=== PATIENT | female | born 1990 | race Caucasian/White ===

== ENCOUNTER → 2021-04-17 | Outpatient (CLI) | payer BC, OTHER ==
[~2021-04-17] MED LIST: BENA25CA4 PO; COLA100C5 PO; FERR325T3 PO; IBUP80TA PO; OXYC1TAB23 PO
== END ==
LOC: M WHC 08:29
PROVIDERS: ATTEND Advanced Practice Midwife
DX: Z34.82 Encounter for supervision of other normal pregnancy, second trimester (principal)

== ENCOUNTER → 2021-04-19 | Outpatient (CLI) | payer BC, OTHER ==
[2021-04-19 13:56] LABS: HEMATOCRIT 33.6 % (36.0-47.0); HEMOGLOBIN 10.6 g/dl (12.0-15.5); MEAN CORPUSCULAR HEMOGLOBIN 28.3 pg (27.0-33.0); MEAN CORPUSCULAR HGB CONC 31.5 g/dl (32.0-36.5); MEAN CORPUSCULAR VOLUME 89.8 fl (80.0-96.0); PLATELET COUNT, AUTOMATED 246 10^3/uL (150-450); RED BLOOD COUNT 3.74 10^6/uL (4.00-5.40); WHITE BLOOD COUNT 9.1 10^3/uL (4.0-10.0)
== END ==
LOC: M PLALAB 09:06
PROVIDERS: ATTEND Advanced Practice Midwife
DX: Z34.82 Encounter for supervision of other normal pregnancy, second trimester (principal)

== ENCOUNTER 2021-07-27 06:41 | Inpatient (IN) | payer OTHER ==
[2021-07-27] VITALS (37 sets, daily range): BP systolic 90–124; BP diastolic 48–90
[~2021-07-27] VITALS: Ht 160 cm; Wt 74.2 kg
[2021-07-27] MEDS ORDERED: BENA25CA4 PO (07:13)
--- OUTSIDE RECORDS SUMMARY | 2021-07-27 08:04 | CCD ---
Author Author [facility] Organization [facility] Address Unknown Phone Unavailable Care Team Providers Care Executive Wellness Programs Director Name Role Phone Harveyoskar Annamarie Unavailable PROBLEMS Type Condition ICD9-CM Code [id number] Code Onset Dates Condition S tatus W/U Status Risk SNOMED Code Notes Problem Supervision of other normal Z34.80 Ac tive confirm [id number] ALLERGIES Allergen (clinical drug ingredient) Drug/Non Drug Allergy do cumented on EMR Reaction Allergy Type Onset Date Status seasonal Unknown Non Drug Allergy Active ENCOUNTERS from 1991 to 2021-07-19 Encounter Location Date Provider Diagnosis [facility] [address] [place] [address] [place] [address] Jul, Annamarie Maxwell Encounter for sup ervision of normal in multigravida in third trimester Z34.83 and 38 weeks gestation of Z3A.38 IMMUNIZATIONS Vaccine Route Administration Date Status TDAP 0.5mL Boostrix IM Intramuscular Jun 06, 2021 Administere d SOCIAL HISTORY Tobacco Use: Social History Observation Description Date Details (start date - stop date) Never Smoker Sex Assigned At : Social History Observation Description Sex Assigned At Unknown Domestic Violence: Question Answer Notes Status: No history of abuse Alcohol Screening: Question Answer Notes Did you have a drink containing alcohol in the past year? No Points 0 Interpretation Negative Tobacco Use: Question Answer Notes Are you a: never smoker REASON FOR REFERRAL No Information VITAL SIGNS Weight 161 lbs Jul, Weight-kg 73.03 kg Jul, Height 63 in 12 Oct, 2021 BMI 28.52 kg/m2 Jul, Blood pressure systolic 106 mm Hg Jul, Blood pressure diastolic 68 mm Hg Jul, MEDICATIONS Medication SIG (Take, Route, Frequency, Duration) Notes Start Da te End Date Status 28-0.8 MG 1 tablet Orally Once a day Active PROCEDURES No Information RESULTS No Results REASON FOR VISIT 1 WK PN MEDICAL (GENERAL) HISTORY Type Description Date Hospitalization History childbirth Goals Section No Information Health Concerns No Information MEDICAL EQUIPMENT No Information MENTAL STATUS No Information FUNCTIONAL STATUS No Information ASSESSMENTS Encounter Date Diagnosis Assessment Notes Treatment Notes Treatm ent Clinical Notes Jul, 38 weeks gestation of (ICD-10 - Z3A.38 ) Jul, Encounter for supervision of normal in multigravida in third trimester (ICD-10 - Z34.83) PLAN OF TREATMENT Next Appt Details 1 Week Reason:- Routine follow up Provider Name:Vidya Banuelos, 2021-07-07 9 10:00:00 AM, [address] [place] [address] , [place], [address], Provider Name:Deonte New, 2021-07-31 10:45:00 AM, [address] [place] [address], , [place], [address], Follow Up:1 Week- Routine follow up Insurance Providers Payer Name Payer Address Payer Phone Insured Name Patient Relati onship to Insured Coverage Start Date Coverage End Date BCBS OF [facility] [phone] [facility] [address] CHEREL[place] PART[place] [facility] HEALTH INSURANCE [id number] [facility] [id number] RONY PARTIDA
--- OUTSIDE RECORDS SUMMARY | 2021-07-27 08:04 | CCD ---
Author Author [facility] Organization [facility] Address Unknown Phone Unavailable Care Team Providers Care Aircraft Cabin Cleaner Name Role Phone Deonte New Unavailable PROBLEMS Type Condition ICD9-CM Code [id number] Code Onset Dates Condition S tatus W/U Status Risk SNOMED Code Notes Problem Supervision of other normal Z34.80 Ac tive confirm [id number] ALLERGIES Allergen (clinical drug ingredient) Drug/Non Drug Allergy do cumented on EMR Reaction Allergy Type Onset Date Status seasonal Unknown Non Drug Allergy Active ENCOUNTERS from 1991 to 2021-07-16 Encounter Location Date Provider Diagnosis [facility] [address] [place] [address] [place] [address] Jul, Deonte New Encounter for superv ision of other normal in third trimester Z34.83 and 37 weeks gestation of Z3A.37 IMMUNIZATIONS Vaccine Route Administration Date Status TDAP [...] FOR REFERRAL No Information VITAL SIGNS Weight 160 lbs Jul, Height 63 in Jul, BMI 28.343 kg/m2 Jul, Blood pressure systolic 108 mm Hg Jul, Blood pressure diastolic 64 mm Hg Jul, MEDICATIONS Medication SIG (Take, [...] Treatment Notes Treatm ent Clinical Notes Jul, Encounter for supervision of other normal in third trimester (ICD-10 - Z34.83) Jul, 37 weeks gestation of (ICD-10 - Z3A.37 ) PLAN OF TREATMENT Next Appt Details Provider Name:Annamarie Maxwell, 2021-07-18 10:00:00 AM, [address] [place] [address] , [place], [address], Provider Name:Vidya Banuelos, 2021-07-07 9 10:00:00 AM, [address] [place] [address] , [place], [address], Provider Name:Deonte New, 2021-07-31 10:45:00 AM, [address] [place], [place] [id number], [place], [address], Insurance Providers Payer Name Payer Address Payer Phone Insured Name Patient Relati onship to Insured Coverage Start Date Coverage End Date BCBS OF [facility] [phone] [facility] [address] CHERELLE PARTIDA [facility] [employer] INSURANCE [id number] [place] [address] RONY PARTIDA
--- OUTSIDE RECORDS SUMMARY | 2021-07-27 08:04 | CCD ---
Author Author [facility] Organization [facility] Address Unknown Phone Unavailable Care Team Providers Care Brass Chaser Name Role Phone Harveyoskar Annamarie Unavailable PROBLEMS Type Condition ICD9-CM Code [id number] Code Onset Dates Condition S tatus W/U Status Risk SNOMED Code Notes Problem Supervision of other normal Z34.80 Ac tive confirm [id number] ALLERGIES Allergen (clinical drug ingredient) Drug/Non Drug Allergy do cumented on EMR Reaction Allergy Type Onset Date Status seasonal Unknown Non Drug Allergy Active ENCOUNTERS from 1991 to 2021-06-07 Encounter Location Date Provider Diagnosis [facility] [address] [place] [address] [place] [address] May, Annamarie Maxwell Encounter for sup ervision of normal in multigravida in third trimester Z34.83 ; 32 weeks gestation of Z3A.32 and Encounter for immunization Z23 IMMUNIZATIONS Vaccine Route Administration Date Status TDAP 0.5mL Boostrix IM Intramuscular Jun 06, 2021 Administere d SOCIAL HISTORY Tobacco Use: Social History Observation Description Date Details (start date - stop date) Never Smoker Sex Assigned At : Social History Observation Description Sex Assigned At Unknown Domestic Violence: Question Answer Notes Status: No history of abuse Tobacco Use: Question Answer Notes Are you a: never smoker REASON FOR REFERRAL No Information VITAL SIGNS Weight 151.8 lbs May, Weight-kg 68.86 kg May, Height 63 in May, BMI 26.89 kg/m2 May, Blood pressure systolic 112 mm Hg May, Blood pressure diastolic 68 mm Hg May, MEDICATIONS Medication SIG (Take, Route, Frequency, Duration) Notes Start Da te End Date Status 28-0.8 MG 1 tablet Orally Once a day Active PROCEDURES from 1991 to 2021-06-07 Procedure Date Ordered Result Body Site Imm: Boostrix 0.5mL IM TDAP 2021-06-06 N/A RESULTS No Results REASON FOR VISIT 2WK PN MEDICAL (GENERAL) HISTORY Type Description Date Hospitalization History childbirth Goals Section No Information Health Concerns No Information MEDICAL EQUIPMENT No Information MENTAL STATUS No Information FUNCTIONAL STATUS No Information ASSESSMENTS Encounter Date Diagnosis Assessment Notes Treatment Notes Treatm ent Clinical Notes May, Encounter for supervision of normal in multigravida in third trimester (ICD-10 - Z34.83) May, 32 weeks gestation of (ICD-10 - Z3A.32 ) May, Encounter for immunization (ICD-10 - Z23) PLAN OF TREATMENT Next Appt Details 2 Weeks Reason:- Routine follow up Provider Name:Candida Ogden, 2021-06-26 0 9:00:00 AM, [address] [facility], , [place], [address], Follow Up:2 Weeks- Routine follow up Insurance Providers Payer Name Payer Address Payer Phone Insured Name Patient Relati onship to Insured Coverage Start Date Coverage End Date BCBS OF [facility] [phone] [facility] [id number] [place] PART[place] [facility] [employer] INSURANCE [id number] [place] [address] RONY PARTIDA
--- OUTSIDE RECORDS SUMMARY | 2021-07-27 08:04 | CCD ---
Author Author [facility] Organization [facility] Address Unknown Phone Unavailable Care Team Providers Care Furniture Crater Name Role Phone DesiraeChriss mendietalette Unavailable PROBLEMS Type Condition ICD9-CM Code [id number] Code Onset Dates Condition S tatus W/U Status Risk SNOMED Code Notes Problem Supervision of other normal Z34.80 Ac tive confirm [id number] ALLERGIES Allergen (clinical drug ingredient) Drug/Non Drug Allergy do cumented on EMR Reaction Allergy Type Onset Date Status seasonal Unknown Non Drug Allergy Active ENCOUNTERS from 1991 to 2021-05-18 Encounter Location Date Provider Diagnosis [facility] [address] [place] [address] [place] [address] May, Annamarie Gabrieloskar Encounter for sup ervision of normal in multigravida in third trimester Z34.83 and 29 weeks gestation of Z3A.29 IMMUNIZATIONS No Information SOCIAL HISTORY Tobacco Use: Social History Observation Description Date Details (start date - stop date) Never Smoker Sex Assigned At : Social History Observation Description Sex Assigned At Unknown Domestic Violence: Question Answer Notes Status: No history of abuse Tobacco Use: Question Answer Notes Are you a: never smoker REASON FOR REFERRAL No Information VITAL SIGNS Weight 151.2 lbs May, Weight-kg 68.58 kg May, Height 63 in May, BMI 26.784 kg/m2 May, Blood pressure systolic 108 mm Hg May, Blood pressure diastolic 64 mm Hg May, MEDICATIONS Medication SIG (Take, Route, Frequency, Duration) Notes Start Da te End Date Status 28-0.8 MG 1 tablet Orally Once a day Active PROCEDURES No Information RESULTS No Results REASON FOR VISIT 4 WK PN MEDICAL (GENERAL) HISTORY Type Description Date Hospitalization History childbirth Goals Section No Information Health Concerns No Information MEDICAL EQUIPMENT No Information MENTAL STATUS No Information FUNCTIONAL STATUS No Information ASSESSMENTS Encounter Date Diagnosis Assessment Notes Treatment Notes Treatm ent Clinical Notes May, Encounter for supervision of normal in multigravida in third trimester (ICD-10 - Z34.83) May, 29 weeks gestation of (ICD-10 - Z3A.29 ) PLAN OF TREATMENT Next Appt Details 2 Weeks Reason:- Routine follow up Provider Name:Annamarieazael Cruzlauren, 2021-06-06 09:00:00 AM, [address] [facility], , [place], [address], Follow Up:2 Weeks- Routine follow up Insurance Providers Payer Name Payer Address Payer Phone Insured Name Patient Relati onship to Insured Coverage Start Date Coverage End Date [facility] WPS HEALTH INSURANCE [address] [facility] [address] R[place] PART[place] BCBS [facility] [phone] [facility] [address] CHERELLE PARTIDA self
--- OUTSIDE RECORDS SUMMARY | 2021-07-27 08:04 | CCD ---
Author Author [facility] Organization [facility] Address Unknown Phone Unavailable Care Team Providers Care Clinical Data Assistant Name Role Phone Melyssa Galeana Unavailable PROBLEMS Type Condition ICD9-CM Code [id number] Code Onset Dates Condition S tatus W/U Status Risk SNOMED Code Notes Problem Supervision of other normal Z34.80 Ac tive confirm [id number] ALLERGIES Allergen (clinical drug ingredient) Drug/Non Drug Allergy do cumented on EMR Reaction Allergy Type Onset Date Status seasonal Unknown Non Drug Allergy Active ENCOUNTERS from 1991 to 2021-07-19 Encounter Location Date Provider Diagnosis [facility] [address] [place] [address] [place] [address] Jun, Melyssa Galeana Encounter for superv ision of normal in multigravida in third trimester Z34.83 and 36 weeks gestation of Z3A.36 IMMUNIZATIONS Vaccine Route Administration Date Status TDAP [...] FOR REFERRAL No Information VITAL SIGNS Weight 157 lbs Jun, Weight-kg 71.21 kg Jun, Height 63 in Jun, BMI 27.811 kg/m2 Jun, Blood pressure systolic 102 mm Hg Jun, Blood pressure diastolic 68 mm Hg Jun, MEDICATIONS Medication SIG (Take, Route, Frequency, Duration) Notes Start Da te End Date Status 28-0.8 MG 1 tablet Orally Once a day Active PROCEDURES No Information RESULTS Component Value Reference Range GROUP B STREP CULTURE Reviewed date:07/10/2021 08:06:17 Interpretation: Performing Lab:[facility], [facility] [address] [facility] [address] , ,[place] [address] REASON FOR VISIT 2 WK PN MEDICAL (GENERAL) HISTORY Type Description Date Hospitalization History childbirth Goals Section No Information Health Concerns No Information MEDICAL EQUIPMENT No Information MENTAL STATUS No Information FUNCTIONAL STATUS No Information ASSESSMENTS Encounter Date Diagnosis Assessment Notes Treatment Notes Treatm ent Clinical Notes Jun, 36 weeks gestation of (ICD-10 - Z3A.36 ) Jun, Encounter for supervision of normal in multigravida in third trimester (ICD-10 - Z34.83) PLAN OF TREATMENT Next Appt Details 1 Week Reason:PN Provider Name:Vidya Banuelos, 2021-07-07 9 10:00:00 AM, [address] [place] [address], , [place], [address], Provider Name:Deonte New, 2021-07-31 10:45:00 AM, [address] [place] [address], , [place], [address], Follow Up:1 WeekPN Insurance Providers Payer Name Payer Address Payer Phone Insured Name Patient Relati onship to Insured Coverage Start Date Coverage End Date BCBS OF [place] [phone] [place] [employer] [facility] [address] CHERELLE PARTIDA [facility] HE[facility] INSURANCE [address] [place] [address] RONY PARTIDA
--- OUTSIDE RECORDS SUMMARY | 2021-07-27 08:04 | CCD ---
Author Author [facility] Organization [facility] Address Unknown Phone Unavailable Support Name Relationship Address Phone [employer] Next Of Kin [address] [place], [place] [id number] GABRIELA ANDRES Next Of Kin [address] [place] [address] RONY PARTIDA Next Of Kin [address] [place] [address] RONY PARTIDA [facility] [address] [place] [address] Unavailable Re-disclosure Warning The records that you are about to access may contain information from federally-assisted alcohol or drug abuse programs. If such information is present, then the following federally mandated warning applies: This information has been disclosed to you from records protected by federal confidentiality rules (42 CFR part 2). The federal rules prohibit you from making any further disclosure of this information unless further disclosure is expressly permitted by the written consent of the person to whom it pertains or as otherwise permitted by 42 CFR part 2. A general authorization for the release of medical or other information is NOT sufficient for this purpose. The Federal rules restrict any use of the information to criminally investigate or prosecute any alcohol or drug abuse patient.The records that you are about to access may contain highly sensitive health information, the redisclosure of which is protected by Article 27-F of the [place] State Public Health law. If you continue you may have access to information: Regarding HIV / AIDS; Provided by facilities licensed or operated by the [facility] Office of Mental Health; or Provided by the [facility] Office for People With Developmental Disabilities. If such information is present, then the following [facility] mandated warning applies: This information has been disclosed to you from confidential records which are protected by state law. State law prohibits you from making any further disclosure of this information without the specific written consent of the person to whom it pertains, or as otherwise permitted by law. Any unauthorized further disclosure in violation of state law may result in a fine or assisted sentence or both. A general authorization for the release of medical or other information is NOT sufficient authorization for further disc losure. Encounters Encounter Providers Location Date Indications Data Source(s ) ( ESTOB) [facility] [address] [place] [address] 07/18/2021 12:00:00 AM EDT eCW1 ([facility]) ( ESTOB) [facility] [address] [place] [address] 07/12/2021 12:00:00 AM EDT eCW1 ([facility]) ( ESTOB) [facility] [address] [place] [address] 07/06/2021 12:00:00 AM EDT eCW1 ([facility]) ( ESTOB) [facility] [address] [place] [address] 06/06/2021 12:00:00 AM EDT eCW1 ([facility]) ( ESTOB) [facility] [address] [place] [address] 05/17/2021 12:00:00 AM EDT [facility] ( [facility] [address] [place] [address] 04/19/2021 12:00:00 AM EDT eCW1 ([facility]) ( NEWOB) [facility] OB Visit [address] [place] [address] 03/22/2021 12:00:00 AM EDT eCW1 ([facility]) Immunizations Vaccine Date Status Description Data Source(s) Tdap 06/06/2021 10:15:00 AM EDT completed e CW1 ([facility]) Tdap 06/06/2021 10:15:00 AM EDT completed e CW1 ([facility]) Tdap 06/06/2021 10:15:00 AM EDT completed e CW1 ([facility]) Tdap 06/06/2021 10:15:00 AM EDT completed e CW1 ([facility]) Medications No Information Insurance Providers Payer name Policy type / Coverage type Policy ID Covered democrat ID Covered democrat's relationship to cano Policy [place] Plan Information [facility] [id number] BC[place] OF [place] [id number]/[phone] [id number] SP [id number] BCBS [place] PPO 302/307 [id number] SP [id number] Problems, Conditions, and Diagnoses Code Display Name Description Problem Type Effective Dates Data Source(s) Z34.80 care Supervision of other normal P lash[place] 03/09/2021 12:00:00 AM EDT eCW1 ([facility]) Surgeries/Procedures Procedure Description Date Indications Data Source(s) TDAP VACCINE 7/> YR IM 06/06/2021 12:00:00 AM EDT eCW1 ([facility]) Results ID Date Data Source GROUP B STREP CULTURE 07/06/2021 12:00:00 AM EDT eCW1 ([facility] includes the [facility]) Name Value Range Interpretation Code Description Data Princess rce(s) Supporting Document(s) GROUP B STREP CULTURE eCW1 ([facility]) Procedure Social History Code Duration Value Status Description Data Source(s ) Smoking 07/18/2021 12:00:00 AM EDT Never Smoker completed Never S moker eCW1 ([facility]) Smoking 07/18/2021 12:00:00 AM EDT Never Smoker completed Never S moker eCW1 ([facility]) Smoking 07/12/2021 12:00:00 AM EDT Never Smoker completed Never S moker eCW1 ([facility]) Smoking 06/06/2021 12:00:00 AM EDT Never Smoker completed Never S moker eCW1 ([facility]) Smoking 05/17/2021 12:00:00 AM EDT Never Smoker completed Never S moker eCW1 ([facility]) Smoking 04/17/2021 12:00:00 AM EDT Never Smoker completed Never S moker eCW1 ([facility]) Smoking 03/22/2021 12:00:00 AM EDT Never Smoker completed Never S moker eCW1 ([facility]) Vital Signs ID Date Data Source UNK Name Value Range Interpretation Code Description Data Source(s) Body weight 161 [lb_av] 161 [lb_av] eCW1 (Count includes the [facility]) Body weight 73.03 kg 73.03 kg eCW1 ([facility]) Body height 63 [in_i] 63 [in_i] eCW1 ([facility]) Body mass index (BMI) [Ratio] 28.52 kg/m2 28.52 kg/m2 eCW1 ([facility]) Systolic blood pressure 106 mm[Hg] 106 mm[Hg] e CW1 ([facility]) Diastolic blood pressure 68 mm[Hg] 68 mm[Hg] eCW1 ([facility]) Body weight 160 [lb_av] 160 [lb_av] eCW1 (Count includes the [facility]) Body height 63 [in_i] 63 [in_i] eCW1 ([facility]) Body mass index (BMI) [Ratio] 28.343 kg/m2 28.3 43 kg/m2 eCW1 ([facility]) Systolic blood pressure 108 mm[Hg] 108 mm[Hg] e CW1 ([facility]) Diastolic blood pressure 64 mm[Hg] 64 mm[Hg] eCW1 ([facility]) Body weight 157 [lb_av] 157 [lb_av] eCW1 (Count includes the [facility]) Body weight 71.21 kg 71.21 kg eCW1 ([facility]) Body height 63 [in_i] 63 [in_i] eCW1 ([facility]) Body mass index (BMI) [Ratio] 27.811 kg/m2 27.8 11 kg/m2 eCW1 ([facility]) Systolic blood pressure 102 mm[Hg] 102 mm[Hg] e CW1 ([facility]) Diastolic blood pressure 68 mm[Hg] 68 mm[Hg] eCW1 ([facility]) Body weight 151.8 [lb_av] 151.8 [lb_av] eCW1 ([facility]) Body weight 68.86 kg 68.86 kg eCW1 ([facility]) Body height 63 [in_i] 63 [in_i] eCW1 ([facility]) Body mass index (BMI) [Ratio] 26.89 kg/m2 26.89 kg/m2 eCW1 ([facility]) Systolic blood pressure 112 mm[Hg] 112 mm[Hg] e CW1 ([facility]) Diastolic blood pressure 68 mm[Hg] 68 mm[Hg] eCW1 ([facility]) Body weight 151.2 [lb_av] 151.2 [lb_av] eCW1 ([facility]) Body weight 68.58 kg 68.58 kg eCW1 ([facility]) Body height 63 [in_i] 63 [in_i] eCW1 ([facility]) Body mass index (BMI) [Ratio] 26.784 kg/m2 26.7 84 kg/m2 eCW1 ([facility]) Systolic blood pressure 108 mm[Hg] 108 mm[Hg] e CW1 ([facility]) Diastolic blood pressure 64 mm[Hg] 64 mm[Hg] eCW1 ([facility]) Body weight 147 [lb_av] 147 [lb_av] eCW1 (Count includes the [facility]) Body weight 66.68 kg 66.68 kg eCW1 ([facility]) Body height 63 [in_i] 63 [in_i] eCW1 ([facility]) Body mass index (BMI) [Ratio] 26.04 kg/m2 26.04 kg/m2 eCW1 ([facility]) Systolic blood pressure 112 mm[Hg] 112 mm[Hg] e CW1 ([facility]) Diastolic blood pressure 66 mm[Hg] 66 mm[Hg] eCW1 ([facility]) Body weight 143.4 [lb_av] 143.4 [lb_av] eCW1 ([facility]) Body height 63 [in_i] 63 [in_i] eCW1 ([facility]) Body mass index (BMI) [Ratio] 25.402 kg/m2 25.4 02 kg/m2 [facility] ([facility]) Systolic blood pressure 102 mm[Hg] 102 mm[Hg] e CW1 ([facility]) Diastolic blood pressure 76 mm[Hg] 76 mm[Hg] eCW1 ([facility])
--- NOTE | 2021-07-27 09:04 | HPEPDOC ---
Obstetrical History & Physical General Date of Admission Jul 27, 2021 at 08:00 History of Present Illness 30 y/o at 39+1 weeks gestation by LNP consistent with 10 week ultrasoun d (EDC=07/31/21) presents with regular contractions every 4-5 minutes throughout the night. No vaginal bleeding, no leakage of fluid, good movement. Age: 30 : 2 Term: 1 Pre-term: 0 Abortions: 0 Livin Care Care: Good Care Dating Final EDC: Jul 31, 2021 Final EDC by: LMP, 1st trimester (US) Past Medical History Past Medical History Medical History Ob history: - 2012 38 week vaginal delivery 6lb and 1 ounce male. Medical History: - None Surgical history: - None Social History Marital Status: Family situation: Spouse/partner home Psychosocial History: No pertinent psych hx * Smoker: non-smoker Alcohol: Denies Drugs: denies Medications Scheduled Diphenhydramine HCl (Benadryl) 25 Mg Capsule, 25 MG PO QPM Physical Examination Physical Examination GENERAL: Alert and oriented times three. BREAST: . ABDOMEN: Gravid and non-tender to touch. FETUS: Is vertex (VTX) by sterile vaginal examination (SVE), fetus is vertex (VTX) by Cornelio. HEART RATE: Regular rate and rhythm. LUNGS: Clear to auscultation (CTA). EXTREMITIES: No edema. No clonus. Deep tendon reflexes (DTRs) + . Vital Signs/I&O Vital Signs Date Time Temp Pulse Resp B/P (MAP) Pulse Ox O2 Delivery O2 Flow Rate FiO2 07/27/21 06:59 97.4 73 124/70 (88) Pertinent Laboratoy Data Blood Type: O+ Group B Streptococcus: Negative Vaginal Examination Dilation: 4 cm Effacement: 80% Station: -2 Cervical Consistency: Soft Cervical Position: Posterior Presentation: Cephalic presentation Assessment Variability: Moderate Accelerations: Positive Decelerations: None Tocometer Contractions: Yes Frequency: regular Assessment/Plan Assessment Pt is a 30-year-old (G)2 para (P)1-0-0-1 at 39+1 weeks by LNP consistent with 10-week ultrasound, Presents to Labor and Delivery (L&D) in active labor. Plan Admit and orient. 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 Diet: clear liquid. Group B Streptococcus (GBS) negative. Labs and intravenous (IV) per unit protocol. Anticipate normal spontaneous delivery (). C-S as appropriate. ELKE HUITRON OMS-3 Jul 27, 2021 09:04
[2021-07-27 09:14] LABS: HEMATOCRIT 32.5 % (36.0-47.0); HEMOGLOBIN 10.1 g/dl (12.0-15.5); MEAN CORPUSCULAR HEMOGLOBIN 24.9 pg (27.0-33.0); MEAN CORPUSCULAR HGB CONC 31.1 g/dl (32.0-36.5); PLATELET COUNT, AUTOMATED 206 10^3/uL (150-450); RED BLOOD COUNT 4.06 10^6/uL (4.00-5.40); WHITE BLOOD COUNT 9.6 10^3/uL (4.0-10.0)
[2021-07-27] MEDS ORDERED: OXYTOCIN DRIP 30 UNITS in IV 1 EA IV SCH (12:45)
[2021-07-27] MEDS: LR 1,000 ML IV SCH ×2 (17:16→21:26)
[2021-07-27] MEDS ORDERED: FENTANYL 2MCG/ML ROPIVACAINE 0.2% IN 0.9% NACL 100ML IVBAG As Ordered ONE (19:50)
[2021-07-27] MEDS ORDERED: FENTANYL/ROPIVACAINE/NACL BAG 100 ML EPIDURAL SCH ×2 (20:20→21:00)
[2021-07-27] MEDS ORDERED: EPIDURAL COMMENT XX SCH (21:00)
[2021-07-27] MEDS ORDERED: EPIDURAL/PCA KEYS XX PRN (21:00)
[2021-07-27] MEDS ORDERED: ONDANSETRON 4MG/2ML VIAL IV PRN (21:00)
[2021-07-27] MEDS ORDERED: diphenhydrAMINE 50MG/ML VIAL (J1200) IV PRN (21:00)
[2021-07-27] MEDS ORDERED: NALOXONE INJ 0.4MG/1ML VIAL (J2310 PER 1MG) IV PRN (21:00)
[2021-07-27] MEDS ORDERED: REFRIGERATOR IV KEYS XX PRN (21:00)
[2021-07-27] MEDS ORDERED: LACTATED RINGER'S 1000 ML IV PRN (21:00)
[2021-07-27] MEDS: ePHEDrine SULFATE 25 MG/5 ML(5MG/ML) SYRINGE IV PRN ×3 (21:03→21:16)
[2021-07-28] VITALS (15 sets, daily range): BP systolic 99–144; BP diastolic 53–66
[2021-07-28] MEDS ORDERED: ceFAZolin SOD 2 GM in IV 1 EA IV ONE (03:50)
[2021-07-28] MEDS ORDERED: BICITRA 30ML SOLN UDC PO ONE (03:50)
[2021-07-28] MEDS ORDERED: AZITHROMYCIN INJ 500 MG, VIAL MATE ADAPTER 1 EACH in NS 250 ML IV ONE (03:50)
[2021-07-28] MEDS ORDERED: diphenhydrAMINE 50MG/ML VIAL (J1200) IV PRN (04:37)
[2021-07-28] MEDS ORDERED: NALBUPHINE HCL 10 MG/ML AMP (J2300) IV PRN ×2 (04:37→06:10)
[2021-07-28] MEDS ORDERED: METOCLOPRAMIDE INJ 10MG/2ML VIAL (J2765 PER 1) IV PRN (04:37)
[2021-07-28] MEDS ORDERED: ONDANSETRON 4MG/2ML VIAL IV PRN ×3 (04:37→06:10)
[2021-07-28] MEDS ORDERED: NALOXONE INJ 0.4MG/1ML VIAL (J2310 PER 1MG) IV PRN ×2 (04:37)
[2021-07-28] MEDS ORDERED: ONDANSETRON 4MG/2ML VIAL As Ordered ONE (04:41)
[2021-07-28] MEDS ORDERED: ACETAMINOPHEN 1000MG 100ML IV BTL (OFIRMEV) (J0131 PER 10MG) As Ordered ONE (04:41)
[2021-07-28] MEDS ORDERED: LIDOCAINE 2% W/EPINEPHRINE 20ML VIAL **PRES FREE As Ordered ONE (04:41)
[2021-07-28] MEDS ORDERED: MORPHINE PRES-FREE INJ 10 MG/10 ML VIAL (J2274) As Ordered ONE (04:41)
[2021-07-28] MEDS ORDERED: KETOROLAC 60MG 2ML VIAL As Ordered ONE (04:41)
[2021-07-28] MEDS ORDERED: OXYTOCIN 30 UNITS IN 0.9% NaCl 500ML IV BAG (J2590) As Ordered ONE ×2 (04:41→05:35)
[2021-07-28] MEDS ORDERED: SODIUM BICARBONATE 8.4% INJ 50MEQ 50 ML VIAL As Ordered ONE (04:41)
[2021-07-28] MEDS ORDERED: PHENYLephrine 500MCG 5ML (100MCG/ML) SYRINGE As Ordered ONE (04:41)
[2021-07-28] MEDS ORDERED: dexameTHASONE 4 MG/ML 1ML VIAL (J1100 PER 1MG) As Ordered ONE (04:41)
[2021-07-28] MEDS ORDERED: RHOGAM 300 MCG (1500 IU) INJ (J2790) IM SCH (05:15)
[2021-07-28] MEDS ORDERED: MEASLES,MUMPS,RUBELLA VACCINE INJ (MMR-II) (90707) SC SCH (05:15)
[2021-07-28] MEDS ORDERED: LR 1,000 ML IV SCH (05:15)
[2021-07-28] MEDS ORDERED: DOCUSATE SODIUM 100MG CAPSULE PO PRN (05:15)
[2021-07-28] MEDS ORDERED: SIMETHICONE 80MG CHEW TAB PO PRN (05:15)
[2021-07-28] MEDS ORDERED: PERCOCET 5MG/325MG TAB PO PRN ×2 (05:15)
[2021-07-28] MEDS ORDERED: OXYTOCIN DRIP 30 UNITS in IV 1 EA IV SCH (05:15)
--- NOTE | 2021-07-28 05:20 | ROOPDOC ---
[facility] Report Of Operation Report of Operation DATE OF PROCEDURE: 07/28/21 Report of operation Preoperative diagnosis: 39 weeks, arrest of descent Postoperative diagnosis: same Procedure: Primary low transverse section Surgeon: Berhane Wakefield M.D. Asst.: Zoie Jonas MD EBL: 600 ml. Urine output: 100 mL's. Findings: 6 lbs.15 oz. male infant, 's 9 and 9, occiput posterior, extended head, normal uterus, fallopian tubes, ovaries. Operative summary: Patient taken to the operating room where spinal was anesthesia induced. She was prepped and draped in a sterile fashion in the supine position. A Dobbins catheter was placed. A Pfannenstiel skin incision was made with scalpel. Fascia was incised and extended bilaterally. The fascia was dissected off the rectus muscles. The peritoneal cavity was entered. A Mobius retractor was placed. A bladder flap was created. A curvilinear incision was made in lower uterine segment until Clear fluid was noted. The incision was extended manually. The was delivered from the vertex position without difficulty. Cord was doubly clamped and cut. The was handed waiting nurses. The placenta was expressed. Uterus was closed with O-Vicryl in a running locked fashion. A second imbricating layer of Vicryl was placed. Peritoneum was closed with 2-0 Vicryl a running fashion. Fascia was closed with 0 Vicryl in running fashion. Skin was closed 4-0 Monocryl subcuticular sutures. Sponge, instrument and needle counts were correct. Zoie Jonas MD, assisted with all aspects of the procedure. She helped close each layer of the incision and deliver the fetus. BERHANE WAKEFIELD MD Jul 28, 2021 05:20
[2021-07-28] MEDS ORDERED: IBUP80TA PO (05:23)
[2021-07-28] MEDS ORDERED: OXYC1TAB23 PO (05:23)
[2021-07-28] MEDS ORDERED: MEPERIDINE INJ 25 MG/ML VIAL (J2175) IV PRN (06:10)
[2021-07-28] MEDS ORDERED: fentaNYL 100 MCG/2 ML INJECTION (J3010) IV PRN (06:10)
[2021-07-28] MEDS ORDERED: oxyCODONE 5MG TAB PO PRN (06:10)
[2021-07-28] MEDS ORDERED: HYDROMORPHONE HCL 0.5 MG/ 0.5 ML SYRINGE (J1170 PER 1) IV PRN (06:10)
[2021-07-28] MEDS ORDERED: PROMETHAZINE INJ 25 MG/ML VIAL (J2550) IV PRN (06:10)
[2021-07-28] MEDS: PRENATAL VITAMINS CHEWABLE TABLET PO SCH (09:56)
[2021-07-28] MEDS: KETOROLAC 30 MG/ML 1ML VIAL IV SCH ×2 (12:14→17:54)
--- NOTE | 2021-07-28 18:52 | IPNPDOC ---
Text Note Date of Service The patient was seen on 07/28/21. NOTE Postop Called by nursing to evaluate saturated dressing x 2. Pt has been unable to void since catheter removed approximately 6 hours ago Bladder noted to be distended, straight cath for 800cc clear urine. Optifoam dressing saturated over approximately 2/3 of right side Dressing remove. Clot removed with sterile saline soaked 4x4. Wound edges well approximated, no evidence dehiscence or active bleeding. Upper right edge of wound firm to palpation. Lower edge of wound firm along entire border of incision. Optifoam reapplied in usual fashion. Pelvic sono ordered. Will update physician with results and observation. VS,Fishbone, I+O VS, Fishbone, I+O Vital Signs Date Time Temp Pulse Resp B/P (MAP) Pulse Ox O2 Delivery O2 Flow Rate FiO2 07/28/21 18:07 98.0 64 17 99/53 (68) 99 Room Air I&O- Last 24 Hours up to 6 AM 07/28/21 06:00 Intake Total 3093.8 ml Output Total 1850 ml Balance 1243.8 ml Annamarie Maxwell CNM Jul 28, 2021 18:52
--- NOTE | 2021-07-28 20:08 | REP ---
INDICATION: r/o incisional hematoma. COMPARISON: None. TECHNIQUE: Real-time sonographic evaluation of incision site is performed. FINDINGS: In the soft tissues at the incision site there is a complex fluid collection which measures 3.2 x 3.4 x 12.4 cm. IMPRESSION: In the soft tissues at the incision site there is a complex fluid collection which measures 3.2 x 3.4 x 12.4 cm. This is compatible with a hematoma. <Electronically signed by Bassem Espana > 07/28/212003
[2021-07-29] MEDS: KETOROLAC 30 MG/ML 1ML VIAL IV SCH (00:05)
[2021-07-29 02:00] VITALS: BP 113/54
[2021-07-29 06:00] VITALS: BP 108/52
[2021-07-29] MEDS: PRENATAL VITAMINS CHEWABLE TABLET PO SCH (07:39)
[2021-07-29] MEDS: IBUPROFEN 800 MG TAB PO SCH ×3 (07:40→23:45)
[2021-07-29 08:19] LABS: HEMATOCRIT 23.6 % (36.0-47.0); MEAN CORPUSCULAR HEMOGLOBIN 25.3 pg (27.0-33.0); MEAN CORPUSCULAR HGB CONC 30.5 g/dl (32.0-36.5); MEAN CORPUSCULAR VOLUME 82.8 fl (80.0-96.0); PLATELET COUNT, AUTOMATED 185 10^3/uL (150-450); RED BLOOD COUNT 2.85 10^6/uL (4.00-5.40); WHITE BLOOD COUNT 14.6 10^3/uL (4.0-10.0)
[2021-07-29 08:24] LABS: HEMOGLOBIN 7.2 g/dl (12.0-15.5)
[2021-07-29] MEDS ORDERED: INFLUENZA QUADRIVALENT PF VACCINE 0.5ML SYRINGE IM ONE (09:00)
[2021-07-29 10:00] VITALS: BP 103/58
--- NOTE | 2021-07-29 13:55 | IPNPDOC ---
Progress Note Date of Service: Jul 29, 2021 Day#: 1 Progress Note SUBJECT: Patient is a 30-year-old G 2 P 2 status post uncomplicated primary section at 39-1/7 weeks' doing well day #1. She has been ambulating, voiding spontaneously without issue and tolerating regular diet. Breast feeding without issue. Reports lochia is like a normal period. Patient is ambulating well. Reports some cramping, well controlled with medication. Voiding and ambulating without difficulty. She is passing flatus. Over her postoperative period the patient has had to have her sterile bandage changed twice due to bleeding from the incision. An ultrasound was performed overnight which showed a subcutaneous hematoma. She has not had any further bleeding from the incision. Has been applying heat packs. Has some soreness but no significant discomfort. OBJECTIVE: VITAL SIGNS: Within normal limits, afebrile. Alert and oriented times three. Breath sounds clear to auscultation. Heart rate: Regular rate and rhythm, no murmurs, rubs or gallops. Abdomen: Fundus firm at U-2. Soft, appropriately tender to palpation. Sterile bandages clean and dry. The small area of induration at the right aspect of the incision, mildly tender to palpation. Minimal to moderate lochia. ASSESSMENT: Patient is a 30-year-old G 2 P 2 status post uncomplicated primary section for arrest of descent after presenting to labor and delivery with contractions. Doing well on day 1. Vitals within normal limits, afebrile, hemodynamically stable with no evidence of infection. PLAN: 1. Discharge to home on postoperative day 3. 2. Tylenol and Toradol for pain. 3. Encourage breast feeding and ambulation. 4. Subcutaneous hematoma -allow to drain freely. Consider wound exploration and drainage if not draining. 5. Plan for incision check in the office in 2 weeks 6. Discussed return precautions at length. VS, I&O, 24H, Fishbone Vital Signs/I&O Vital Signs Date Time Temp Pulse Resp B/P (MAP) Pulse Ox O2 Delivery O2 Flow Rate FiO2 07/29/21 10:00 98.5 90 17 103/58 (73) 100 Room Air I&O- Last 24 Hours up to 6 AM 07/29/21 05:59 Output Total 4150 ml Balance -4150 ml Laboratory Data 24H LABS Laboratory Tests 2 07/29/21 07:45: Nucleated Red Blood Cells % (auto) 0.1H CBC/BMP Laboratory Tests 07/29/21 07:45 TRACIE PEMBERTON MD Jul 29, 2021 13:55
[2021-07-29 14:00] VITALS: BP 102/50
[2021-07-29 18:00] VITALS: BP 104/51
[2021-07-29 22:00] VITALS: BP 118/61
[2021-07-30 02:13] VITALS: BP 104/54
[2021-07-30 06:00] VITALS: BP 110/62
[2021-07-30] MEDS: PRENATAL VITAMINS CHEWABLE TABLET PO SCH (07:19)
[2021-07-30] MEDS: IBUPROFEN 800 MG TAB PO SCH (07:19)
[2021-07-30 08:16] VITALS: BP 110/62
[2021-07-30] MEDS ORDERED: COLA100C5 PO (08:25)
[2021-07-30] MEDS ORDERED: FERR325T3 PO (08:27)
--- NOTE | 2021-07-31 12:49 | IPN ---
PROGRESS NOTE DATE: 07/29/2021 This patient requested circumcision of her male after discussing risks and benefits of circumcision, medical and non-medical indications, penile block and aftercare, expressed understanding of penile block, aftercare and bleeding, signed consent form, all questions were answered. 20 minute discussion. We await clearance by the cane flume chute operator.
--- NOTE | 2021-08-01 16:37 | OBDS ---
[facility] Obstetrical Discharge Sum. Obstetrical Discharge Summary Date: Jul 30, 2021 : 2 Term: 2 Pre-term: 0 Abortions: 0 Livin VDRL: ABO Blood Group (O) Rh: Positive Rubella: Immune Labor Pt presented to labor and delivery with painful, regular contractions Delivery primary low transverse section secondary to failure to descend Infant Sex: Male Weight: pounds (6), ounces (15) Anesthesia: Regional Anesthesia A/P, Post Course List any complications Admission diagnosis: Labor Discharge diagnosis: Postoperative, delivered Condition at Discharge: Stable Discharge Instructions: Home Activity: As tolerated, no driving while on narcotic medication, nothing in the vagina for 6 weeks Diet: As Medications: See med rec Follow-up: 1 week incision check TRACIE PEMBERTON MD Aug 01, 2021 16:37
== END 2021-07-30 13:20 | disposition home or self-care (01) | DRG 773 ==
LOC: M LDO 06:41 → M LDI 08:00 → M OBS 07-28 06:40
PROVIDERS: ADMIT Advanced Practice Midwife; ATTEND Advanced Practice Midwife
PROC: 10D00Z1 Extraction of Products of Conception, Low, Open Approach (ICD-10-PCS; principal; 2021-07-28 04:30)
DX: O32.4XX0 Maternal care for high head at term, not applicable or unspecified (principal); Z37.0 Single live birth; Z3A.39 39 weeks gestation of pregnancy

== ENCOUNTER → 2021-08-07 | Outpatient (CLI) | payer BC, OTHER ==
--- NOTE | 2021-08-07 11:53 | REP ---
INDICATION: SECTION WOUND COMPLICATION. COMPARISON: 07/28/2021. TECHNIQUE: Real-time sonographic evaluation of incision site performed. FINDINGS: There is a large complex fluid collection again seen at the incision site 14.8 x 2.8 x 3.5 cm. This has slightly increased in length compared to the prior study. There is soft tissue edema in the left lower quadrant at the site of reported pain. IMPRESSION: There is a large complex fluid collection again seen at the incision site 14.8 x 2.8 x 3.5 cm. This has slightly increased in length compared to the prior study. There is soft tissue edema in the left lower quadrant at the site of reported pain. <Electronically signed by Bassem Espana > 08/07/21 [id number]
== END ==
LOC: M WHC 11:08
PROVIDERS: ATTEND Specialist
DX: O90.9 Complication of the puerperium, unspecified (principal)